=== PATIENT | male | born 1970 | race Caucasian/White ===

== ENCOUNTER 2017-09-08 12:24 | Inpatient (IN) | payer SELFPAY ==
[~2017-09-08] VITALS: Ht 170.2 cm; Wt 77.3 kg
[~2017-09-08 12:24] MED LIST: ALBU90OI INH; ALPR.5 PO; ALPR1; ALPR1 PO; AMLO5 PO; ASPI325EC PO; ASPI81EC PO; ATOR40TA PO; Aspirin EC81 MG PO; BUPR150T2 PO; CARV25 PO; CIPR500 PO; CLIN300 PO; CLOP75; CRUTCH4 USE; CYCL10 PO; DOXY100 PO; EFFIENT; EFFIENT PO; GABA300 PO; HYDACE10B PO; HYDACE5 PO; LACT PO; LANS30EC PO; LEVFLO500 PO; LISHYD2012 PO; LISI20 PO; LISI5 PO; LORA2 PO; OMEP20ER PO; OXYACE5T PO; PARO10 PO; PRAV10 PO; PRAV20 PO; PROM25 PO; RXPROM25 PO; SULTRIDS PO; TRAZ100 PO; Zofran4 MG PO; [UNRECOGNIZED DRUG - REMARK]
[2017-09-08 12:53] LABS: BASOPHILS ABSOLUTE AUTO 0.13 K/mm3 (0.00-0.23); BASOPHILS PERCENT AUTO 1 % (0-2); EOSINOPHILS PERCENT AUTO 1 % (0-6); Hematocrit 44.3 % (37.0-53.0); Hemoglobin 15.3 g/dL (13.5-17.5); IMMATURE GRAN PERCENT AUTO 1 % (0-1); LYMPHOCYTES ABSOLUTE AUTO 2.69 K/mm3 (0.84-5.20); LYMPHOCYTES PERCENT AUTO 18 % (21-46); MONOCYTES ABSOLUTE AUTO 0.72 K/mm3 (0.16-1.47); MONOCYTES PERCENT AUTO 5 % (4-13); Mean Corpuscular HGB 32.6 pg (26.0-34.0); Mean Corpuscular HGB Conc 34.5 g/dL (31.5-36.5); Mean Corpuscular Volume 94 fL (80-100); NEUTROPHILS ABSOLUTE AUTO 11.39 K/mm3 (1.96-9.15); NEUTROPHILS PERCENT AUTO 75 % (41-73); RDW Coefficient Variation 12.7 % (11.7-14.2); RDW Standard Deviation 44.2 fL (35.1-46.3); White Blood Cell Count 15.23 K/mm3 (4.00-11.30)
[2017-09-08 13:01] LABS: Mean Platelet Volume 9.8 fL (9.1-12.4); Platelet Count 217 K/mm3 (150-400)
[2017-09-08 13:03] LABS: Alanine Aminotransfer (ALT/SGP 23 U/L (12-78); Albumin, Blood 3.9 g/dL (3.4-5.0); Albumin/Globulin Ratio 1.1 (0.8-1.8); Alk Phos 54 U/L (50-136); Anion Gap 13 mmol/L (6-16); Aspartate Aminotrans (AST/SGOT 24 U/L (12-37); Bilirubin, Total 0.9 mg/dL (0.1-1.0); Blood Urea Nitrogen 21 mg/dL (8-24); Bun/Creatinine Ratio 29.9 (12.0-20.0); CO2, Blood 19 mmol/L (21-32); Calcium, Blood 8.7 mg/dL (8.5-10.1); Chloride, Blood 112 mmol/L (98-108); Globulin, Blood 3.5 g/dL (2.2-4.0); Glomerular Filtration Rate >60 (60-); Glucose, Blood 132 mg/dL (70-99); Sodium, Blood 144 mmol/L (136-145); Total Protein, Blood 7.4 g/dL (6.4-8.2); Troponin I <0.015 ng/mL (0.000-0.040)
[2017-09-08 13:10] LABS: International Normalized Ratio 1.06
[2017-09-08 18:13] LABS: Hemoglobin 13.3 g/dL (13.5-17.5); Mean Corpuscular HGB 32.9 pg (26.0-34.0); Mean Corpuscular HGB Conc 35.9 g/dL (31.5-36.5); Mean Corpuscular Volume 92 fL (80-100); Mean Platelet Volume 9.8 fL (9.1-12.4); Platelet Count 229 K/mm3 (150-400); RDW Coefficient Variation 12.5 % (11.7-14.2); RDW Standard Deviation 42.1 fL (35.1-46.3); Red Blood Cell Count 4.04 M/mm3 (4.30-5.90); White Blood Cell Count 22.32 K/mm3 (4.00-11.30)
[2017-09-09 12:23] LABS: Hemoglobin 6.3 g/dL (13.5-17.5)
[2017-09-09 16:54] LABS: Hematocrit 22.9 % (37.0-53.0)
[2017-09-09 20:06] LABS: Hematocrit 19.7 % (37.0-53.0)
[2017-09-10 02:31] LABS: Hematocrit 18.1 % (37.0-53.0); Hemoglobin 6.5 g/dL (13.5-17.5)
[2017-09-10 07:24] LABS: Hematocrit 19.9 % (37.0-53.0)
[2017-09-10 11:40] LABS: Hematocrit 18.7 % (37.0-53.0); Hemoglobin 6.9 g/dL (13.5-17.5)
[2017-09-10 12:05] LABS: Anion Gap 10 mmol/L (6-16); Blood Urea Nitrogen 28 mg/dL (8-24); Bun/Creatinine Ratio 39.5 (12.0-20.0); CO2, Blood 25 mmol/L (21-32); Calcium, Blood 7.5 mg/dL (8.5-10.1); Chloride, Blood 111 mmol/L (98-108); Creatinine, Blood 0.71 mg/dL (0.60-1.20); Glomerular Filtration Rate >60 (60-); Glucose, Blood 126 mg/dL (70-99); Potassium, Blood 3.4 mmol/L (3.5-5.5); Sodium, Blood 146 mmol/L (136-145)
[2017-09-10 15:01] LABS: Hematocrit 18.5 % (37.0-53.0); Hemoglobin 6.7 g/dL (13.5-17.5)
[2017-09-10 18:59] LABS: Hemoglobin 6.1 g/dL (13.5-17.5)
[2017-09-10 19:03] LABS: Hematocrit 16.9 % (37.0-53.0)
[2017-09-11 00:54] LABS: Hematocrit 20.5 % (37.0-53.0); Hemoglobin 7.4 g/dL (13.5-17.5)
[2017-09-11 04:17] LABS: Hematocrit 20.6 % (37.0-53.0); Hemoglobin 7.3 g/dL (13.5-17.5)
[2017-09-11 10:54] LABS: Hematocrit 19.4 % (37.0-53.0); Hemoglobin 6.9 g/dL (13.5-17.5)
[2017-09-11 16:40] LABS: Hematocrit 19.6 % (37.0-53.0); Hemoglobin 6.9 g/dL (13.5-17.5)
[2017-09-11 22:33] LABS: Hematocrit 19.3 % (37.0-53.0); Hemoglobin 6.9 g/dL (13.5-17.5)
[2017-09-12 05:04] LABS: BASOPHILS ABSOLUTE AUTO 0.04 K/mm3 (0.00-0.23); BASOPHILS PERCENT AUTO 0 % (0-2); EOSINOPHILS ABSOLUTE AUTO 0.13 K/mm3 (0.00-0.68); EOSINOPHILS PERCENT AUTO 1 % (0-6); Hematocrit 19.9 % (37.0-53.0); IMMATURE GRAN ABSOLUTE AUTO 0.09 K/mm3 (0.00-0.10); IMMATURE GRAN PERCENT AUTO 1 % (0-1); LYMPHOCYTES ABSOLUTE AUTO 2.68 K/mm3 (0.84-5.20); LYMPHOCYTES PERCENT AUTO 28 % (21-46); MONOCYTES ABSOLUTE AUTO 0.78 K/mm3 (0.16-1.47); MONOCYTES PERCENT AUTO 8 % (4-13); Mean Corpuscular HGB 31.5 pg (26.0-34.0); Mean Corpuscular HGB Conc 35.2 g/dL (31.5-36.5); Mean Corpuscular Volume 90 fL (80-100); Mean Platelet Volume 10.6 fL (9.1-12.4); NEUTROPHILS ABSOLUTE AUTO 5.98 K/mm3 (1.96-9.15); NEUTROPHILS PERCENT AUTO 62 % (41-73); NRBC ABSOLUTE 0.11 K/mm3 (0.00-0.02); NRBC Auto 1.1 /100 WBC (0.0-0.2); Platelet Count 126 K/mm3 (150-400); RDW Standard Deviation 47.8 fL (35.1-46.3); Red Blood Cell Count 2.22 M/mm3 (4.30-5.90)
[2017-09-12 05:26] LABS: Albumin, Blood 2.6 g/dL (3.4-5.0); Anion Gap 6 mmol/L (6-16); Blood Urea Nitrogen 8 mg/dL (8-24); Bun/Creatinine Ratio 11.7 (12.0-20.0); CO2, Blood 28 mmol/L (21-32); Calcium, Blood 7.5 mg/dL (8.5-10.1); Chloride, Blood 111 mmol/L (98-108); Creatinine, Blood 0.68 mg/dL (0.60-1.20); Glomerular Filtration Rate >60 (60-); Glucose, Blood 100 mg/dL (70-99); Phosphorus, Blood 1.2 mg/dL (2.5-4.9); Potassium, Blood 3.3 mmol/L (3.5-5.5); Sodium, Blood 145 mmol/L (136-145)
[2017-09-12 13:19] LABS: Hematocrit 22.3 % (37.0-53.0); Hemoglobin 7.9 g/dL (13.5-17.5)
[2017-09-13 04:58] LABS: BASOPHILS ABSOLUTE AUTO 0.06 K/mm3 (0.00-0.23); BASOPHILS PERCENT AUTO 1 % (0-2); EOSINOPHILS ABSOLUTE AUTO 0.33 K/mm3 (0.00-0.68); EOSINOPHILS PERCENT AUTO 3 % (0-6); Hematocrit 22.9 % (37.0-53.0); IMMATURE GRAN ABSOLUTE AUTO 0.09 K/mm3 (0.00-0.10); IMMATURE GRAN PERCENT AUTO 1 % (0-1); LYMPHOCYTES ABSOLUTE AUTO 2.75 K/mm3 (0.84-5.20); LYMPHOCYTES PERCENT AUTO 29 % (21-46); MONOCYTES ABSOLUTE AUTO 0.84 K/mm3 (0.16-1.47); MONOCYTES PERCENT AUTO 9 % (4-13); Mean Corpuscular HGB Conc 34.9 g/dL (31.5-36.5); Mean Corpuscular Volume 92 fL (80-100); Mean Platelet Volume 10.3 fL (9.1-12.4); NEUTROPHILS ABSOLUTE AUTO 5.52 K/mm3 (1.96-9.15); NEUTROPHILS PERCENT AUTO 58 % (41-73); NRBC ABSOLUTE 0.03 K/mm3 (0.00-0.02); NRBC Auto 0.3 /100 WBC (0.0-0.2); Platelet Count 177 K/mm3 (150-400); RDW Coefficient Variation 15.4 % (11.7-14.2); RDW Standard Deviation 46.3 fL (35.1-46.3); White Blood Cell Count 9.59 K/mm3 (4.00-11.30)
[2017-09-13 05:23] LABS: Albumin, Blood 2.9 g/dL (3.4-5.0); Anion Gap 7 mmol/L (6-16); Blood Urea Nitrogen 7 mg/dL (8-24); Bun/Creatinine Ratio 11.2 (12.0-20.0); CO2, Blood 29 mmol/L (21-32); Calcium, Blood 7.7 mg/dL (8.5-10.1); Chloride, Blood 108 mmol/L (98-108); Creatinine, Blood 0.63 mg/dL (0.60-1.20); Glomerular Filtration Rate >60 (60-); Glucose, Blood 89 mg/dL (70-99); Phosphorus, Blood 2.3 mg/dL (2.5-4.9); Potassium, Blood 3.1 mmol/L (3.5-5.5); Sodium, Blood 144 mmol/L (136-145)
[2017-09-13] MEDS ORDERED: Carafate1 GM/10 ML PO (12:14)
[2017-09-13] MEDS ORDERED: PANT40 PO (12:16)
== END 2017-09-13 17:30 | disposition home or self-care (01) | DRG 369 ==
LOC: ER 12:24 → MEDS 12:25 → ICUW 12:25 → MEDS 14:53 → ICUW 15:47 → MEDS 09-12 17:47 → ENPENDDIS 09-13 10:53 → MEDS 09-13 17:30
PROVIDERS: Emergency Medicine; Family Medicine; Internal Medicine; Internal Medicine Gastroenterology
PROC: 0W3P8ZZ Control Bleeding in Gastrointestinal Tract, Via Natural or Artificial Opening Endoscopic (ICD-10-PCS; principal; 2017-09-08 18:30)
PROC: 30233N1 Transfusion of Nonautologous Red Blood Cells into Peripheral Vein, Percutaneous Approach (ICD-10-PCS; 2017-09-09)
PROC: 30233R1 Transfusion of Nonautologous Platelets into Peripheral Vein, Percutaneous Approach (ICD-10-PCS; 2017-09-09)
PROC: 0DD68ZX Extraction of Stomach, Via Natural or Artificial Opening Endoscopic, Diagnostic (ICD-10-PCS; 2017-09-10)
DX: K22.6 Gastro-esophageal laceration-hemorrhage syndrome (principal); D62 Acute posthemorrhagic anemia; I10 Essential (primary) hypertension; R00.1 Bradycardia, unspecified; I25.10 Atherosclerotic heart disease of native coronary artery without angina pectoris; Z87.11 Personal history of peptic ulcer disease; K44.9 Diaphragmatic hernia without obstruction or gangrene; K20.9 Esophagitis, unspecified; F17.200 Nicotine dependence, unspecified, uncomplicated; I25.2 Old myocardial infarction
CPT/HCPCS: 36415; 36430; 71045; 74176; 80048; 80053; 80069; 84484; 85014; 85018; 85025; 85027; 85610; 85730; 86850; 86900; 86901; 86923; 93005; 93010; 96361; 96374; 96375; 96376; 99285; C1751; C9113; J0360; J1430; J2060; J2250; J2405; J2550; J2765; J3475; J7030; J7060; J7120; P9016; P9035; Q9968

== ENCOUNTER 2018-05-28 16:06 | Inpatient (IN) | payer OTHER ==
[~2018-05-28] VITALS: Ht 170.2 cm; Wt 81.7 kg
[~2018-05-28 16:06] MED LIST changes: +ASPI81CH PO; +Carafate1 GM/10 ML PO; +PANT40 PO
[2018-05-28 16:43] LABS: BASOPHILS PERCENT AUTO 1 % (0-2); EOSINOPHILS ABSOLUTE AUTO 0.01 K/mm3 (0.00-0.68); EOSINOPHILS PERCENT AUTO 0 % (0-6); Hematocrit 57.8 % (37.0-53.0); Hemoglobin 19.1 g/dL (13.5-17.5); IMMATURE GRAN ABSOLUTE AUTO 0.13 K/mm3 (0.00-0.10); IMMATURE GRAN PERCENT AUTO 1 % (0-1); LYMPHOCYTES ABSOLUTE AUTO 1.03 K/mm3 (0.84-5.20); LYMPHOCYTES PERCENT AUTO 6 % (21-46); MONOCYTES ABSOLUTE AUTO 1.36 K/mm3 (0.16-1.47); MONOCYTES PERCENT AUTO 8 % (4-13); Mean Corpuscular HGB 27.8 pg (26.0-34.0); Mean Corpuscular Volume 84 fL (80-100); Mean Platelet Volume 9.4 fL (9.1-12.4); NEUTROPHILS ABSOLUTE AUTO 14.56 K/mm3 (1.96-9.15); NEUTROPHILS PERCENT AUTO 85 % (41-73); Platelet Count 207 K/mm3 (150-400); RDW Coefficient Variation 20.7 % (11.7-14.2); Red Blood Cell Count 6.87 M/mm3 (4.30-5.90); White Blood Cell Count 17.19 K/mm3 (4.00-11.30)
[2018-05-28 17:12] LABS: Alanine Aminotransfer (ALT/SGP 17 U/L (12-78); Albumin, Blood 3.6 g/dL (3.4-5.0); Alk Phos 63 U/L (50-136); Anion Gap 14 mmol/L (6-16); Aspartate Aminotrans (AST/SGOT 37 U/L (12-37); Bilirubin, Total 0.9 mg/dL (0.1-1.0); Blood Urea Nitrogen 21 mg/dL (8-24); Bun/Creatinine Ratio 19.4 (12.0-20.0); CO2, Blood 17 mmol/L (21-32); Calcium, Blood 8.3 mg/dL (8.5-10.1); Chloride, Blood 104 mmol/L (98-108); Creatinine, Blood 1.08 mg/dL (0.60-1.20); Globulin, Blood 3.7 g/dL (2.2-4.0); Glomerular Filtration Rate >60 (60-); Glucose, Blood 147 mg/dL (70-99); Potassium, Blood 4.3 mmol/L (3.5-5.5); Sodium, Blood 135 mmol/L (136-145); Total Protein, Blood 7.3 g/dL (6.4-8.2)
[2018-05-28 19:58] LABS: Influenza A Negative (NEGATIVE); Influenza B Negative (NEGATIVE)
[2018-05-28 23:17] LABS: Hemoglobin 19.4 g/dL (13.5-17.5); Mean Corpuscular HGB 27.7 pg (26.0-34.0); Mean Corpuscular HGB Conc 32.4 g/dL (31.5-36.5); Mean Corpuscular Volume 85 fL (80-100); Mean Platelet Volume 10.1 fL (9.1-12.4); Platelet Count 220 K/mm3 (150-400); RDW Standard Deviation 61.1 fL (35.1-46.3); Red Blood Cell Count 7.01 M/mm3 (4.30-5.90); White Blood Cell Count 12.63 K/mm3 (4.00-11.30)
[2018-05-28 23:18] LABS: Hematocrit 59.8 % (37.0-53.0)
== END 2018-05-29 02:46 | disposition short-term general hospital (02) | DRG 378 ==
LOC: ER 16:06 → ERHOLD 16:07 → ER 16:07 → ERHOLD 23:35 → ER 23:35 → ERHOLD 05-29 02:04
PROVIDERS: Emergency Medicine; Nurse Practitioner Acute Care; ADMIT Internal Medicine
DX: K92.0 Hematemesis (principal); E87.1 Hypo-osmolality and hyponatremia; I10 Essential (primary) hypertension; K21.9 Gastro-esophageal reflux disease without esophagitis; E86.0 Dehydration; F17.210 Nicotine dependence, cigarettes, uncomplicated; Z95.1 Presence of aortocoronary bypass graft; Z88.0 Allergy status to penicillin; I25.2 Old myocardial infarction; Z79.82 Long term (current) use of aspirin; Z79.899 Other long term (current) drug therapy
CPT/HCPCS: 36415; 71046; 80053; 83690; 83735; 83880; 84484; 85025; 85027; 87804; 93005; 93010; C9113; J1650; J2405; J3475; J7030; J7050

== ENCOUNTER 2018-08-12 07:38 | Day surgery (SDC) | payer OTHER ==
[~2018-08-12] VITALS: Ht 172.7 cm; Wt 81.0 kg
[2018-08-12] MEDS ORDERED: CLOP75 (08:43)
[2018-08-12] MEDS ORDERED: ATOR40TA (08:43)
[2018-08-12] MEDS ORDERED: IRON150C (08:44)
[2018-08-12] MEDS ORDERED: CARV6.25 (08:44)
--- NOTE | 2018-08-12 08:48 | NUR ---
08/12/18 0848 Namrata Nieto 1 IV MISS IN RH BY JUMA VALVE 1 GOOD IV IN RW BY JUMA PT TOW
== END 2018-08-12 09:35 | disposition home or self-care (01) ==
LOC: ORSCSDS 07:38
PROVIDERS: Internal Medicine Gastroenterology
PROC: 0DB68ZX Excision of Stomach, Via Natural or Artificial Opening Endoscopic, Diagnostic (ICD-10-PCS; principal; 2018-08-12 09:15)
DX: Z87.11 Personal history of peptic ulcer disease (principal); K22.2 Esophageal obstruction; I25.10 Atherosclerotic heart disease of native coronary artery without angina pectoris; I10 Essential (primary) hypertension; K21.9 Gastro-esophageal reflux disease without esophagitis; E78.5 Hyperlipidemia, unspecified; I25.2 Old myocardial infarction; F41.9 Anxiety disorder, unspecified; K20.8 Other esophagitis; K44.9 Diaphragmatic hernia without obstruction or gangrene; K31.9 Disease of stomach and duodenum, unspecified; F17.210 Nicotine dependence, cigarettes, uncomplicated; Z79.01 Long term (current) use of anticoagulants; Z79.82 Long term (current) use of aspirin; Z79.899 Other long term (current) drug therapy
CPT/HCPCS: 88305; 88342; J2704; J7120

== ENCOUNTER 2020-11-17 16:45 | Inpatient (IN) | payer OTHER ==
[~2020-11-17] VITALS: Ht 172.7 cm; Wt 86.9 kg
[~2020-11-17 16:45] MED LIST changes: +ATOR40TA; +CARV6.25; +CLOP75 PO; +IRON150C
[2020-11-17 17:18] LABS: BASOPHILS ABSOLUTE AUTO 0.08 K/mm3 (0.00-0.23); BASOPHILS PERCENT AUTO 1 % (0-2); EOSINOPHILS ABSOLUTE AUTO 0.42 K/mm3 (0.00-0.68); EOSINOPHILS PERCENT AUTO 5 % (0-6); Hematocrit 46.7 % (37.0-53.0); Hemoglobin 16.8 g/dL (13.5-17.5); IMMATURE GRAN ABSOLUTE AUTO 0.04 K/mm3 (0.00-0.10); IMMATURE GRAN PERCENT AUTO 1 % (0-1); LYMPHOCYTES ABSOLUTE AUTO 2.66 K/mm3 (0.84-5.20); LYMPHOCYTES PERCENT AUTO 33 % (21-46); MONOCYTES ABSOLUTE AUTO 0.56 K/mm3 (0.16-1.47); MONOCYTES PERCENT AUTO 7 % (4-13); Mean Corpuscular HGB 32.4 pg (26.0-34.0); Mean Corpuscular Volume 90 fL (80-100); Mean Platelet Volume 9.7 fL (9.1-12.4); NEUTROPHILS ABSOLUTE AUTO 4.22 K/mm3 (1.96-9.15); NEUTROPHILS PERCENT AUTO 53 % (41-73); Platelet Count 197 K/mm3 (150-400); RDW Coefficient Variation 11.9 % (11.7-14.2); RDW Standard Deviation 39.6 fL (35.1-46.3); Red Blood Cell Count 5.19 M/mm3 (4.30-5.90); White Blood Cell Count 7.98 K/mm3 (4.00-11.30)
[2020-11-17 17:55] LABS: Alanine Aminotransfer (ALT/SGP 27 U/L (12-78); Albumin, Blood 4.1 g/dL (3.4-5.0); Albumin/Globulin Ratio 1.3 (0.8-1.8); Alk Phos 61 U/L (50-136); Anion Gap 1 mmol/L (6-16); Aspartate Aminotrans (AST/SGOT 18 U/L (12-37); Bilirubin, Total 0.7 mg/dL (0.1-1.0); Blood Urea Nitrogen 11 mg/dL (8-24); Bun/Creatinine Ratio 13.5 (12.0-20.0); CO2, Blood 28 mmol/L (21-32); Calcium, Blood 9.1 mg/dL (8.5-10.1); Chloride, Blood 111 mmol/L (98-108); Creatinine, Blood 0.82 mg/dL (0.60-1.20); Globulin, Blood 3.1 g/dL (2.2-4.0); Glomerular Filtration Rate >60 (60-); Glucose, Blood 111 mg/dL (70-99); Potassium, Blood 3.8 mmol/L (3.5-5.5); Sodium, Blood 140 mmol/L (136-145); Total Protein, Blood 7.2 g/dL (6.4-8.2); Troponin I 0.152 ng/mL (0.000-0.040)
[2020-11-17] MEDS ORDERED: CARVEDILOL12.5 MG PO (18:46)
[2020-11-17] MEDS ORDERED: AMLODIPINE-ATO1 EA14 PO (18:46)
[2020-11-17] MEDS ORDERED: FEROSUL325 M1 PO (18:47)
[2020-11-17 19:55] LABS: International Normalized Ratio 0.97; Prothrombin Time Results 10.5 Sec (9.7-11.5)
--- NOTE | 2020-11-17 23:16 | NUR ---
PCU ADMIT PT BROUGHT TO PCU-15 BY CHERYL FROM ER @ 2240, SLID OVER FROM [facility] TO PCU BED BY 4 STAFF MEMBERS. PT A&O X4 W/ C/O NAUSEA UPON ARRIVAL. PT ALSO REPORTS "TIGHTNESS ACROSS MY CHEST" RATING DISCOMFORT A /10. PT MEDICATED W/ PRN IV ZOFRAN PER EMAR. PT THEN W/ EPISODE OF LIQUID BROWN EMESIS. PT DENIES HAVING EATEN TODAY, BUT REPORTS HAVING DRANK COFFEE IN THE MORNING & 7 UP LATER IN THE DAY. PT DENIES FURTHER NAUSEA. VSS. SPO2 > 92% ON RA. MONITOR SHOWS SB, HR 40's. HEPARIN GTT INFUSING PER ORDERS.
[2020-11-18 03:26] LABS: BASOPHILS ABSOLUTE AUTO 0.06 K/mm3 (0.00-0.23); BASOPHILS PERCENT AUTO 1 % (0-2); EOSINOPHILS ABSOLUTE AUTO 0.03 K/mm3 (0.00-0.68); EOSINOPHILS PERCENT AUTO 0 % (0-6); Hematocrit 49.7 % (37.0-53.0); Hemoglobin 17.9 g/dL (13.5-17.5); IMMATURE GRAN ABSOLUTE AUTO 0.04 K/mm3 (0.00-0.10); IMMATURE GRAN PERCENT AUTO 0 % (0-1); LYMPHOCYTES ABSOLUTE AUTO 1.43 K/mm3 (0.84-5.20); LYMPHOCYTES PERCENT AUTO 13 % (21-46); MONOCYTES PERCENT AUTO 3 % (4-13); Mean Corpuscular HGB 32.1 pg (26.0-34.0); Mean Corpuscular Volume 89 fL (80-100); Mean Platelet Volume 9.8 fL (9.1-12.4); NEUTROPHILS ABSOLUTE AUTO 9.39 K/mm3 (1.96-9.15); NEUTROPHILS PERCENT AUTO 83 % (41-73); Platelet Count 208 K/mm3 (150-400); RDW Coefficient Variation 11.9 % (11.7-14.2); RDW Standard Deviation 39.3 fL (35.1-46.3); Red Blood Cell Count 5.58 M/mm3 (4.30-5.90); White Blood Cell Count 11.25 K/mm3 (4.00-11.30)
[2020-11-18 03:44] LABS: Alanine Aminotransfer (ALT/SGP 34 U/L (12-78); Albumin, Blood 4.5 g/dL (3.4-5.0); Albumin/Globulin Ratio 1.2 (0.8-1.8); Alk Phos 69 U/L (50-136); Anion Gap 6 mmol/L (6-16); Aspartate Aminotrans (AST/SGOT 27 U/L (12-37); Bilirubin, Total 1.1 mg/dL (0.1-1.0); Blood Urea Nitrogen 10 mg/dL (8-24); Bun/Creatinine Ratio 12.1 (12.0-20.0); CHOL/HDL RATIO 3.7; CO2, Blood 28 mmol/L (21-32); Calcium, Blood 9.7 mg/dL (8.5-10.1); Chloride, Blood 106 mmol/L (98-108); Cholesterol 179 mg/dL (50-200); Creatinine, Blood 0.83 mg/dL (0.60-1.20); Globulin, Blood 3.7 g/dL (2.2-4.0); Glomerular Filtration Rate >60 (60-); Glucose, Blood 125 mg/dL (70-99); HDL Cholesterol 48 mg/dL (>39); LDL/HDL RATIO 2.3; Low Density Lipoprotein Chol 112 mg/dL (0-110); Potassium, Blood 3.9 mmol/L (3.5-5.5); Sodium, Blood 140 mmol/L (136-145); Total Protein, Blood 8.2 g/dL (6.4-8.2); Triglycerides 94 mg/dL (30-160); Very Low Density Lipoprot Chol 18 mg/dL (6-32)
--- NOTE | 2020-11-18 06:13 | NUR ---
SHIFT SUMMARY PT A+OX4. CONTINUOUS NAUSEA THROUGHOUT THE NIGHT. MINIMAL RELIEF WITH MEDICATION. HEPARIN DRIP INFUSING IN LEFT AC. VOIDING WITH BEDSIDE URINAL. TROPONIN VALUES ELEVATED TO 1.13 @0321 THIS MORNING FROM .464 @1926. PROVIDER NOTIFIED AND CARDIOLOGY CONSULT WITH DR. SUBRAMANIAN ORDERED. 05/12 CHEST PAIN. O2 SATS OVER 98% ON RA. SINUS ROSALINE 40'S AND 50'S. WILL CONTINUE TO MONITORU NTIL REPORT GIVEN
--- NOTE | 2020-11-18 08:57 | NUR ---
CHANGE OF CARE REPORT RECIEVED FROM HEALTH PHYSICIST RN. PATIENT RESTING IN BED. HEPARIN GTT INFUSING INTO LAC. CONFIRMED GTT ORDERS WITH HUGO MORTENSEN RN. PATIENT DENIES CHEST DISCOMFORT. FREQUENT EPISODES OF BROWN GREEN EMESIS. MEDICATED PER EMAR. CARDIOLOGY CONSULTED.
[2020-11-18 09:42] LABS: SARS-Cov-2 (COVID-19) PCR, MMC NEGATIVE (NEGATIVE)
--- NOTE | 2020-11-18 10:00 | NUR ---
TO PROCEDURE PATIENT TO HEART CENTER VIA BED WITH HEART CENTER STAFF
--- NOTE | 2020-11-18 12:21 | NUR ---
RETURN TO UNIT PATIENT BACK TO ROOM FROM HEART CENTER. RIGHT FEMORAL SITE INSPECTED UPON ARRIVAL. CHG DRESSING TO SITE. C/D/I. PATIENT RESTING WITH EYES CLOSED. VITAL SIGNS STABLE.
--- NOTE | 2020-11-18 16:06 | NUR ---
FAMILY MEMBER UPDATE WITH PERMISSION OF PATIENT, PHONE CALL WAS PLACED TO PATIENT'S FATHER. UPDATE WAS GIVEN ON PATIENT'S STATUS. PHONE NUMBER IN CHART FOR FUTURE REFERENCE.
--- NOTE | 2020-11-18 17:32 | NUR ---
SHIFT SUMMARY PATIENT A&Ox4 THROUGHOUT SHIFT. VITAL SIGNS STABLE. SPO2 REMAINED >95% ON ROOM AIR. EPISODE OF NAUSEA AND VOMITING X2 THIS MORNING. MEDICATED PER EMAR WITH RELIEF. NS RUNNING INTO R WRIST IV @ 125ML/HR. 2 STENTS PLACED DURING ANGIOGRAM. RIGHT GROIN SITE WITH CHG DRESSING THAT IS C/D/I. DENIES CHEST PAIN OR DISCOMFORT SINCE RETURN FROM HEART CENTER. PATIENT IS RESTING QUIETLY, WITH CALL LIGHT IN REACH. WILL REPORT TO LIABILITY CLAIMS EXAMINER RN.
[2020-11-19 03:49] LABS: Hematocrit 42.8 % (37.0-53.0); Hemoglobin 15.2 g/dL (13.5-17.5); Mean Corpuscular HGB 31.9 pg (26.0-34.0); Mean Corpuscular HGB Conc 35.5 g/dL (31.5-36.5); Mean Corpuscular Volume 90 fL (80-100); Mean Platelet Volume 9.9 fL (9.1-12.4); Platelet Count 188 K/mm3 (150-400); RDW Standard Deviation 39.5 fL (35.1-46.3); Red Blood Cell Count 4.76 M/mm3 (4.30-5.90); White Blood Cell Count 14.14 K/mm3 (4.00-11.30)
[2020-11-19 04:10] LABS: Alanine Aminotransfer (ALT/SGP 28 U/L (12-78); Albumin, Blood 3.5 g/dL (3.4-5.0); Albumin/Globulin Ratio 1.2 (0.8-1.8); Alk Phos 49 U/L (50-136); Anion Gap 6 mmol/L (6-16); Aspartate Aminotrans (AST/SGOT 20 U/L (12-37); Bilirubin, Total 1.1 mg/dL (0.1-1.0); Blood Urea Nitrogen 11 mg/dL (8-24); Bun/Creatinine Ratio 14.6 (12.0-20.0); CO2, Blood 26 mmol/L (21-32); Calcium, Blood 8.5 mg/dL (8.5-10.1); Chloride, Blood 110 mmol/L (98-108); Creatinine, Blood 0.75 mg/dL (0.60-1.20); Globulin, Blood 2.8 g/dL (2.2-4.0); Glomerular Filtration Rate >60 (60-); Glucose, Blood 96 mg/dL (70-99); Potassium, Blood 3.3 mmol/L (3.5-5.5); Sodium, Blood 142 mmol/L (136-145); Total Protein, Blood 6.3 g/dL (6.4-8.2)
--- NOTE | 2020-11-19 05:13 | NUR ---
PT IS A&O X 4, ON RA AND LUNGS CLEAR THROUGHOUT. DENIES ANY C/P, SINUS ROSALINE ON MONITOR IN THE 40'S. R GROIN SITE IS UNCHANGED AND CLEAN/INTACT WITH NO BLEEDING. PEDAL PULSES +2 BILATERALLY. NO COMPLAINTS OF NAUSEA. PATIENT HAS BEEN RESTING SUPINE THROUGH THE NIGHT. BED IN LOWEST POSITION AND CALL LIGHT WITHIN REACH.
[2020-11-19] MEDS ORDERED: ASPI81CH PO (11:35)
--- NOTE | 2020-11-19 12:55 | NUR ---
PT DISHCARGE PT PROVIDED WITH DISCHARGE INSTRUCTIONS PER PHYSICIAN. NEW MEDICATIONS SENT TO PT'S PREFERRED PHARMACY. R GROIN SITE WNL. VS STABLE. IV'S REMOVED. PT TO BE BROUGHT TO FRIENDS VEHICLE BY BRAND COORDINATOR WITH ALL BELONGINGS, STENT CARDS AND DISCHARGE PAPERWORK.
== END 2020-11-19 13:15 | disposition home or self-care (01) | DRG 247 ==
LOC: ER 16:45 → ERHOLD 18:53 → PCU 18:53
PROVIDERS: Internal Medicine Cardiovascular Disease; Physician Assistant; ADMIT Internal Medicine
PROC: 027135Z Dilation of Coronary Artery, Two Arteries with Two Drug-eluting Intraluminal Devices, Percutaneous Approach (ICD-10-PCS; principal; 2020-11-18)
PROC: B2111ZZ Fluoroscopy of Multiple Coronary Arteries using Low Osmolar Contrast (ICD-10-PCS; 2020-11-18)
PROC: B2121ZZ Fluoroscopy of Single Coronary Artery Bypass Graft using Low Osmolar Contrast (ICD-10-PCS; 2020-11-18)
PROC: B2181ZZ Fluoroscopy of Left Internal Mammary Bypass Graft using Low Osmolar Contrast (ICD-10-PCS; 2020-11-18)
DX: I21.4 Non-ST elevation (NSTEMI) myocardial infarction (principal); I10 Essential (primary) hypertension; I25.2 Old myocardial infarction; Z95.5 Presence of coronary angioplasty implant and graft; Z95.1 Presence of aortocoronary bypass graft; Z20.822 Contact with and (suspected) exposure to COVID-19; Z88.5 Allergy status to narcotic agent; Z88.0 Allergy status to penicillin; Z79.899 Other long term (current) drug therapy; F17.210 Nicotine dependence, cigarettes, uncomplicated; I25.10 Atherosclerotic heart disease of native coronary artery without angina pectoris; Z87.11 Personal history of peptic ulcer disease; K21.9 Gastro-esophageal reflux disease without esophagitis; Z98.890 Other specified postprocedural states
CPT/HCPCS: 36415; 71046; 76937; 80053; 80061; 83690; 84484; 85025; 85027; 85347; 85610; 85730; 93005; 93010; 93306; 93455; 93459; 96374; 96375; 99152; 99153; 99285-25; A9270; C1725; C1769; C1874; C1887; C1894; C9600; J1644; J2250; J2405; J2550; J2765; J3010; J7030; J7040; J7050; Q9967; U0004